=== PATIENT | female | born 1990 ===

== ENCOUNTER 2021-08-25 15:00 | Inpatient (IN) | payer OTHER ==
[~2021-08-25] VITALS: Ht 154.9 cm; Wt 3.2 kg
[2021-09-14] MEDS ORDERED: PRENATAL TABLE1 EAC3 PO (05:37)
== END 2021-09-17 12:15 | disposition home or self-care (01) | DRG 788 ==
LOC: LDR 09-14 04:53 → OB/GYN 09-14 04:53 → O/R 09-14 04:53 → OB/GYN 09-14 20:17
PROVIDERS: ADMIT Obstetrics & Gynecology; ATTEND Obstetrics & Gynecology
PROC: 4A1HXCZ Monitoring of Products of Conception, Cardiac Rate, External Approach (ICD-10-PCS; 2021-09-14)
PROC: 10D00Z1 Extraction of Products of Conception, Low, Open Approach (ICD-10-PCS; principal; 2021-09-14 14:30)
DX: O82 Encounter for cesarean delivery without indication (principal); O62.0 Primary inadequate contractions; O99.820 Streptococcus B carrier state complicating pregnancy; Z3A.39 39 weeks gestation of pregnancy; Z20.822 Contact with and (suspected) exposure to COVID-19; Z37.0 Single live birth

== ENCOUNTER 2022-01-18 09:39 | Day surgery (SDC) | payer OTHER ==
[~2022-01-18 09:39] MED LIST: PRENATAL TABLE1 EAC3 PO
== END 2022-01-18 19:10 | disposition home or self-care (01) ==
LOC: CIR.AMB 09:39
PROVIDERS: ATTEND Obstetrics & Gynecology
DX: O71.82 Other specified trauma to perineum and vulva (principal)

== ENCOUNTER 2022-12-29 14:30 | Day surgery (SDC) | payer OTHER | END 2022-12-30 00:45 | disposition home or self-care (01) | LOC: CIR.AMB 14:30 | PROVIDERS: ATTEND Obstetrics & Gynecology | DX: Q52.79 Other congenital malformations of vulva (principal); N90.89 Other specified noninflammatory disorders of vulva and perineum; Z20.822 Contact with and (suspected) exposure to COVID-19 ==